=== PATIENT | female | born 1995 | race Caucasian/White ===

== ENCOUNTER 2017-12-04 13:08 | Emergency (ER) | payer OTHER ==
[~2017-12-04] VITALS: Ht 170.2 cm; Wt 71.7 kg
[2017-12-04] MEDS ORDERED: IBUPROFEN 600 MG TAB PO STA (13:36)
--- NOTE | 2017-12-04 15:50 | Diagnostic Imaging Report ---
FOOT 3 VIEW RT - HOPD - 3 views HISTORY: Pain COMPARISON: None available. FINDINGS: Bones: No acute displaced fracture. Osseous alignment is within normal limits. Joints: The joint spaces are well-maintained. Soft tissues: The soft tissues appear unremarkable. IMPRESSION: No acute fracture or dislocation of the right foot, specifically, no second toe fracture. Signed by: Dr. Dallas Baez MD on 12/04/2017 3:47 PM
== END 2017-12-04 16:00 | disposition home or self-care (01) ==
LOC: FSED 13:08
DX: M25.512 Pain in left shoulder (principal); M62.838 Other muscle spasm; S90.121A Contusion of right lesser toe(s) without damage to nail, initial encounter; W22.09XA Striking against other stationary object, initial encounter
CPT/HCPCS: 36415; 80076; 80329; 99284